=== PATIENT | male | born 1950 | race Caucasian/White ===

== ENCOUNTER 2016-08-25 19:17 | Emergency (ER) ==
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
[2016-08-25] MEDS ORDERED: NS 1,000 ML IV ONE ×2 (19:51→21:16)
[2016-08-25 20:21] LABS: BASO% 0.1 % (0.0-0.8); EOS# 0.12 X1000 (0.0-0.7); EOS% 0.8 % (0.0-10.0); HEMATOCRIT 46.4 % (42.0-52.0); HEMOGLOBIN 15.7 g/dL (14.0-18.0); IMM GRAN# 0.04 X1000 (0.0-0.04); IMM GRAN% 0.3 % (0.0-0.5); LYMPH# 0.64 X1000 (1.2-3.4); LYMPH% 4.4 % (20.5-51.1); MANUAL DIFF NEEDED? YES; MCH 31.3 PG (27-31); MCHC 33.8 g/dL (33-37); MCV 92.4 FL (81-99); MONO% 4.8 % (1.7-9.3); MPV 9.6 FL (7.4-10.4); NEUT% 89.6 % (42.2-75.2); PLT 215 X1000 (130-400); RBC 5.02 XMIL (4.7-6.1)
[2016-08-25 20:30] LABS: AGAP 14; ALBUMIN 4.2 g/dL (3.5-5.0); ALKALINE PHOSPHATASE 66 U/L (32-122); BUN 23 mg/dL (8-22); CALCIUM 8.9 mg/dL (8.8-10.2); CHLORIDE 99 mmol/L (98-107); COSMO 279; GOT 22 U/L (10-34); GPT 16 U/L (10-44); SODIUM 137 mmol/L (136-145); TCO2 24 mmol/L (25-35); TOTAL PROTEIN 7.5 g/dL (6.3-8.3)
[2016-08-25 20:35] LABS: BANDS 2 % (0-1); LYMPHS 5 % (21-51); MONO 4 % (1-9)
[2016-08-25] MEDS ORDERED: NS 2,000 ML ONE (21:12)
--- NOTE | 2016-08-25 21:51 | EKG Report ---
Test Performed on : 08/25/2016 8:54:32 PM Test Reason : emboli Blood Pressure : / mmHG Vent. Rate : 078 BPM Atrial Rate : 078 BPM P-R Int : 156 ms QRS Dur : 086 ms QT Int : 398 ms P-R-T Axes : 070 -13 041 degrees QTc Int : 453 ms Normal sinus rhythm. Normal ECG No previous ECGs available Unconfirmed Result
[2016-08-26] MEDS ORDERED: NS 1,000 ML IV ONE (00:25)
[2016-08-26] MEDS ORDERED: PHENERGAN PO ONE (01:36)
[2016-08-26] MEDS ORDERED: LOMOTIL PO ONE (01:36)
[2016-08-26 01:59] VITALS: BP 132/76
--- NOTE | 2016-08-26 08:36 | Diag Imaging Result Document ---
PROCEDURE NAME: CT THORAX W/O CONTRAST - 08/25/2016 CT CHEST WITHOUT CONTRAST: COMPARISON: None available. FINDINGS: There is a miniscule nodule in the right lower lobe on image 162 of series 3 that is less than 4 mm and appears to contain internal calcification consistent with a tiny granuloma. The lungs are essentially clear, otherwise. There is no pleural fluid collection or pneumothorax. There is no airspace consolidation identified. There are a couple calcified mediastinal lymph nodes indicating prior granulomatous disease. There is no cardiomegaly. There is mild aneurysmal dilation of the ascending aorta measuring up to 4.6 cm in diameter. There is mild patchy aortic atherosclerotic calcification. No mediastinal fluid collections are identified. There are several old healed rib fractures on the left. The visualized bony structures are grossly intact, otherwise. IMPRESSION: 1. Mild aneurysmal dilation of the ascending aorta. 2. No definite acute chest pathology.
--- NOTE | 2016-08-26 10:02 | Diag Imaging Result Document ---
PROCEDURE NAME: LOWER LEG-LEFT - 08/25/2016 PLAIN RADIOGRAPH OF THE LEFT LOWER LEG 4 VIEWS: COMPARISON: None available. FINDINGS: There is no discrete fracture, dislocation, or intrinsic osseous lesion. The visualized joint spaces are essentially unremarkable. The surrounding soft tissues are grossly unremarkable. IMPRESSION: No evidence of acute osseous abnormality.
--- NOTE | 2016-08-26 10:16 | Diag Imaging Result Document ---
PROCEDURE NAME: LOWER LEG-RIGHT - 08/25/2016 PLAIN RADIOGRAPH OF THE RIGHT LOWER LEG, 4 VIEWS: COMPARISON: None available. FINDINGS: There is a small degenerative enthesophyte at the posterior aspect of the calcaneus. There is no discrete fracture, dislocation, or intrinsic osseous lesion identified. Joint spaces appear to be preserved. Surrounding soft tissues are grossly unremarkable by plain radiograph. IMPRESSION: No definite acute osseous abnormality.
== END 2016-08-26 02:19 | disposition home or self-care (01) ==
LOC: P.ED 19:17
DX: S20.20XA Contusion of thorax, unspecified, initial encounter (principal); R55 Syncope and collapse; K52.9 Noninfective gastroenteritis and colitis, unspecified; R07.89 Other chest pain; M79.662 Pain in left lower leg; M79.661 Pain in right lower leg; S80.812A Abrasion, left lower leg, initial encounter; S80.811A Abrasion, right lower leg, initial encounter; R11.0 Nausea; M95.4 Acquired deformity of chest and rib; R61 Generalized hyperhidrosis; R53.1 Weakness; I10 Essential (primary) hypertension; Z79.899 Other long term (current) drug therapy; V47.5XXA Car driver injured in collision with fixed or stationary object in traffic accident, initial encounter
CPT/HCPCS: 71250; 80053; 82550; 84484; 85025; 93005; 96360; 96361; J7030